=== PATIENT | female | born 1995 | race Caucasian/White ===

== ENCOUNTER 2018-09-13 19:39 | Emergency (ER) | payer BC ==
--- NOTE | 2018-09-13 20:34 | UC ---
Ear Complaint HPI - HPI Summary HPI Summary: Intermittent dry Cough x4 wks, intermittent sore throat, and ear pain bilateral for approx 1 wk. Denies fever, rash, current throat pain, n/v. does report hx of allergies but that it is gone now.Her main concern is ringing in ears which has persisted for a week. - History of Current Complaint Chief Complaint: UCEar Stated Complaint: EAR ACHE, COUGH Time Seen by Provider: 09/13/18 20:25 Hx Obtained From: Patient Hx Last Menstrual Period: 10 days ago Onset/Duration: Gradual Onset Aggravating Factors: Nothing Alleviating Factors: OTC Meds - Allergies/Home Medications Allergies/Adverse Reactions: Allergies Allergy/AdvReac Type Severity Reaction Status Date / Time No Known Allergies Allergy Verified 09/13/18 20:30 PMH/Surg Hx/FS Hx/Imm Hx Previously Healthy: Yes - Surgical History Surgical History: None - Social History Substance Use Type: None - Immunization History Vaccination Up to Date: Yes Review of Systems All Other Systems Reviewed And Are Negative: Yes Constitutional: Positive: Negative Skin: Positive: Negative ENT: Positive: Sore Throat - but not today, Ear Ache - assoc w/ ringing in ears , Sinus Congestion Respiratory: Positive: Cough - dry, intermittent, not daily Cardiovascular: Positive: Negative Gastrointestinal: Positive: Negative Physical Exam Triage Information Reviewed: Yes Appearance: Well-Appearing, No Pain Distress Vital Signs Reviewed: Yes Eyes: Positive: Conjunctiva Clear ENT: Positive: Pharynx normal, TMs normal - not bulging but effusions bilat., Uvula midline, Other - +post nasal drip visualized. Negative: Pharyngeal erythema Neck: Positive: Supple, Nontender, No Lymphadenopathy Respiratory Exam: Normal Cardiovascular Exam: Normal Neurological: Positive: Alert Skin Exam: Normal Ear Complaint Course/Dx - Course Course Of Treatment: INtermittent cough x4 wks w/ assoc. ear pain and ringing in ears. Afebrile, clear lungs, good vitals, TMs NL. Suspect allergy-related w / post nasal drip contributing to intermittent cough. Plan is to tx w/ flonase and if cough persists or tinnitus persists should f/u w/ pcp. - Differential Dx/Diagnosis Differential Diagnosis/HQI/PQRI: Bronchitis, Otitis Externa, Otitis Media, URI Provider Diagnoses: URI; TINNITUS BILAT. Discharge - Sign-Out/Discharge Documenting (check all that apply): Patient Departure All imaging exams completed and their final reports reviewed: No Studies - Discharge Plan Condition: Good Disposition: HOME Prescriptions: Fluticasone NASAL SPRAY 50MCG* [Flonase NASAL SPRAY 50MCG*] 2 spray BOTH NARES DAILY #1 btl Patient Education Materials: Upper Respiratory Infection (ED), Tinnitus (ED) Referrals: No Primary Care Phys,NOPCP [Primary Care Provider] - Additional Instructions: If ringing in the ear persists please follow up with your pcp. - Billing Disposition and Condition Condition: GOOD Disposition: Home
[2018-09-13 20:36] VITALS: BP 132/72
== END 2018-09-13 20:50 | disposition home or self-care (01) ==
LOC: UCCORT 19:39
DX: J06.9 Acute upper respiratory infection, unspecified (principal); H93.13 Tinnitus, bilateral
CPT/HCPCS: 99212; G0463

== ENCOUNTER 2019-03-12 07:02 | Day surgery (SDC) | payer BC ==
[~2019-03-12 07:02] MED LIST: Buffered Lidocaine 1% SYRIN* 1 ML/SYRINGE INTRADERM ONE; Dexamethasone IV* 4 MG/ML 1 ML (4 MG) IV SLOW PU ONE; Famotidine IV* 10 MG/ML 2 ML (20 mg) IV ONE; Lactated Ringers 1000 ML Bag* 1,000 ML IV SCH
[2019-03-12] MEDS ORDERED: Dexamethasone IV* 4 MG/ML 1 ML (4 MG) ONE (07:15)
[2019-03-12] MEDS ORDERED: Famotidine IV* 10 MG/ML 2 ML (20 mg) ONE (07:15)
[2019-03-12] MEDS ORDERED: ceFAZolin 2 GM PREMIX in ORs 2 GM/50 ML BAG IVPB ONE (07:15)
[2019-03-12] MEDS ORDERED: Bupivacaine 0.25% EPI 200,000* 30 ML SDV ONE (08:51)
[2019-03-12] MEDS ORDERED: Succinylcholine* 20 MG/ML 10 ML VIAL ONE (09:03)
[2019-03-12] MEDS ORDERED: Midazolam* 1 MG/ML 5 ML VIAL (5 MG) ONE (09:03)
[2019-03-12] MEDS ORDERED: Propofol* 10 MG/ML 20 ML BTL ONE (09:03)
[2019-03-12] MEDS ORDERED: fentaNYL* 50 MCG/ML 2 ML VIAL (100 MCG VIAL) ONE (09:03)
[2019-03-12] MEDS ORDERED: Rocuronium* 10 MG/ML VIAL ONE (09:04)
[2019-03-12] MEDS ORDERED: Lidocaine 2% PF * 5 ML VIAL ONE (09:04)
[2019-03-12] MEDS ORDERED: Ketorolac INJ* 30 MG/ML 1 ML VIAL ONE (09:21)
[2019-03-12] MEDS ORDERED: Ondansetron INJ* 2 MG/ML VIAL ONE (10:09)
--- NOTE | 2019-03-12 10:24 | OP ---
Operative Report - Blank - Operative Report Date of Operation: 03/12/19 Note: Brief Operative Note Preop Dx: Symptomatic cholelithiasis Postop Dx: same Procedure: laparoscopic cholecystectomy Anesthesia: GET Surgeon: Dayron Change Management Analyst: KATHY Waldron Fluids: 1500 mL LR EBL: < 50 mL Specimen: Gall bladder Drains: none Findings: dictated
[2019-03-12] MEDS ORDERED: HYDROcodone/ACETAMIN 5-325 MG* 1 TAB PO PRN (10:40)
[2019-03-12] MEDS ORDERED: oxyCODONE/Acetamin 5/325 MG* TAB PO PRN (10:40)
[2019-03-12] MEDS ORDERED: fentaNYL* 50 MCG/ML 2 ML VIAL (100 MCG VIAL) IV PRN (10:40)
[2019-03-12] MEDS ORDERED: Naloxone* 0.4 MG/ML 1 ML VIAL IV PRN (10:40)
[2019-03-12] MEDS ORDERED: DiMENhydriNATE IV* 50 MG/ML VIAL IV PUSH PRN (10:40)
[2019-03-12 11:17] VITALS: BP 126/74
--- NOTE | 2019-03-12 21:09 | OP ---
CC: Primary care doctor, [facility] OPERATIVE REPORT: DATE OF SURGERY: 03/12/19 SURGEON: Dr. Padgett. SUPERVISOR PICKING CREW: KATHY Sylvester. ANESTHESIOLOGIST: Dr. Patel. ANESTHESIA: General anesthesia. PRE-OP DIAGNOSIS: Symptomatic cholelithiasis. POST-OP DIAGNOSIS: Symptomatic cholelithiasis. OPERATIVE PROCEDURE: Laparoscopic cholecystectomy. BLOOD LOSS: Less than 50 cc. FLUIDS: 1500 cc of crystalloids given. SPECIMEN: Gallbladder. DRAINS: None. DESCRIPTION OF PROCEDURE: The patient was identified in the preoperative area, brought to the OR, pl aced on the operating table in supine position. Preoperative antibiotics were given. Sequential dev ices were placed on bilateral lower extremities. General anesthesia was induced. Folds of umbilicus were elevated anteriorly and a Veress needle inserted to abdominal cavity, which was then allowed to insufflate to pressure of 15 mmHg. A 5-mm trocar was then placed in an OptiView fashion at the jennifer umbilical site. Veress needle was identified and intact and not injuring any of the intraabdominal s tructures and removed. Review of the abdomen showed normal-appearing bowel. The table was repositio linh and a 12-mm trocar was placed in the subxiphoid area and to two 5 mm along the right costal saadia n. Next, the gallbladder fundus was grasped and retracted over the liver. Infundibular region was retrac ashley towards right lower quadrant exposing Calot's triangle. Calot's node was identified and we disse cted above this bluntly and pushed this posteriorly. Cystic duct and cystic artery were isolated, do ubly clipped and ligated and the gallbladder was removed from the liver bed and placed in endoscopic retrieval bag and removed through the subxiphoid port. Review of the cystic duct stumps, cystic jonas ry stumps showed no bleeding or bile. There was some oozing along the lateral aspect of the peritone um and a clip livestock nutritionist was used for hemostasis at this site. Next, table was repositioned back to chris tral with the specimen out. We then allowed abdomen to collapse. Trocars were removed under direct vision and all 4 skin incisions were reapproximated with 4-0 Monocryl subcuticular sutures followed b y Steri-Strips and sterile dressing. [id number]/[facility] #: [id number]
== END 2019-03-12 11:41 | disposition home or self-care (01) ==
LOC: OR 07:02
PROVIDERS: ATTEND Surgery
DX: K80.10 Calculus of gallbladder with chronic cholecystitis without obstruction (principal)
CPT/HCPCS: 81025; 88304; J0330; J0690; J1100; J1885; J2250; J2405; J2704; J3010